=== PATIENT | female | born 1990 | race Two or more races ===

== ENCOUNTER → 2020-07-08 | Day surgery (SDC) | payer BC ==
[2020-07-08] VITALS (13 sets, daily range): BP systolic 115–140; BP diastolic 71–85
[~2020-07-08] VITALS: Ht 172.7 cm; Wt 80.7 kg
[~2020-07-08] MED LIST: Acetaminophen (Non formulary) 100 ML IV ONE; Atropine Sulfate 0.4mg/ml inj IVP PRN; DiphenhydrAMINE 50mg/ml Inj IVP PRN; Glycopyrrolate 0.2mg/ml 1ml Vial ONE; HYDROcodone/Acetamin 10/325 tab ORAL PRN; HYDROcodone/Acetamin 5/325 tab ORAL PRN; HYDROcodone/Acetamin 7.5/325 tab ORAL PRN; HYDROmorphone 1mg/ml Carpuject SUBQ PRN; Hydromorphone 0.5mg/0.5ml inj IVP PRN; Ketorolac 30mg Inj IV PRN; LORazepam Inj 2mg/ml 1ml IV PRN; LR 1000ml 1,000 ML IVLG SCH; Labetalol 5mg/ml 20ml vial IV PRN; Lidocaine 1% MPF 10mg/ml 5ml ONE; Meperidine 25mg/1ml Inj (FOR RIGORS ONLY) IV PRN; Metoclopramide 10mg/2ml Inj IVP PRN; Midazolam 2mg/2ml Inj IVP PRN; NS 1,000 ML IV SCH; Ropivacaine 5mg/ml Vial 30ml INJ ONE; fentaNYL 100 mcg/2 mL IV ONE; fentaNYL 100 mcg/2 mL IV PRN; oxyCODONE HCL/Acetaminophen 5/325mg ORAL PRN
[2020-07-08 06:25] LABS: EOSINOPHILS % (AUTO) 1.5 % (0.0-3.0); HEMATOCRIT 37.5 % (37.0-47.0); HEMOGLOBIN 12.4 G/DL (12.0-16.0); MEAN CORPUSCULAR VOLUME 90 FL (80-99); MONOCYTES % (AUTO) 16.1 % (1.0-10.0); NEUTROPHILS % (AUTO) 48.4 % (45.0-75.0); PLATELET COUNT 206 K/UL (150-450); RED BLOOD COUNT 4.19 M/UL (4.20-5.40); RED CELL DISTRIBUTION WIDTH 11.7 % (11.6-14.8); WHITE BLOOD COUNT 5.3 K/UL (4.8-10.8)
[2020-07-08 06:34] LABS: INR 0.9 (0.9-1.1)
[2020-07-08 06:41] LABS: ANION GAP 13 mmol/L (5-15); BLOOD UREA NITROGEN 11 mg/dL (7-18); CALCIUM 9.2 MG/DL (8.5-10.1); CARBON DIOXIDE 21 MMOL/L (21-32); CHLORIDE 108 MMOL/L (98-107); CREATININE 0.6 MG/DL (0.55-1.30); POTASSIUM 3.8 MMOL/L (3.5-5.1); SODIUM 142 MMOL/L (136-145)
--- NOTE | 2020-07-08 07:07 | Anethesia Preoperative Eval ---
Anesthesia Pre-op PMH/ROS General Date of Evaluation: Jul 08, 2020 Time of Evaluation: 07:21 Anesthesiologist: Emmie ASA Score: ASA 2 Mallampati Score Class I : Soft palate, uvula, fauces, pillars visible Class II: Soft palate, uvula, fauces visible Class III: Soft palate, base of uvula visible Class IV: Only hard plate visible Mallampati Classification: Class II Surgeon: Boaz Diagnosis: Abd Pain Surgical Procedure: Laparoscopic R Ovarian Cystectomy Anesthesia History: none Family History: no anesthesia problems Allergies: Coded Allergies: AMOXICILLIN (Verified Allergy, Unknown, Rash, 07/07/20) Medications: see eMAR Patient NPO?: Yes Past Medical History Neurologic/Psychiatric: Reports: depression/anxiety HEENT: Reports: other - Tinnitus Anesthesia Pre-op Phys. Exam Physician Exam Last Vital Signs Date Time Temp Pulse Resp B/P (MAP) Pulse Ox O2 Delivery O2 Flow Rate FiO2 07/08/20 05:58 Room Air 07/08/20 05:58 97.3 89 18 115/76 96 Constitutional: NAD Neurologic: CN 2-12 intact Cardiovascular: RRR Respiratory: CTA Gastrointestinal: S/NT/ND Airway Exam Mallampati Score: Class II MO: full ROM: full Teeth: missing, intact Anesthesia Pre-op A/P Labs Hematology Test 07/08/20 05:55 White Blood Count 5.3 K/UL (4.8-10.8) Red Blood Count 4.19 M/UL (4.20-5.40) L Hemoglobin 12.4 G/DL (12.0-16.0) Hematocrit 37.5 % (37.0-47.0) Mean Corpuscular Volume 90 FL (80-99) Mean Corpuscular Hemoglobin 29.7 PG (27.0-31.0) Mean Corpuscular Hemoglobin Concent 33.1 G/DL (32.0-36.0) Red Cell Distribution Width 11.7 % (11.6-14.8) Platelet Count 206 K/UL (150-450) Mean Platelet Volume 8.6 FL (6.5-10.1) Neutrophils (%) (Auto) 48.4 % (45.0-75.0) Lymphocytes (%) (Auto) 32.0 % (20.0-45.0) Monocytes (%) (Auto) 16.1 % (1.0-10.0) H Eosinophils (%) (Auto) 1.5 % (0.0-3.0) Basophils (%) (Auto) 2.0 % (0.0-2.0) Coagulation Test 07/08/20 05:55 Prothrombin Time 10.1 SEC (9.30-11.50) Prothromb Time International Ratio 0.9 (0.9-1.1) Activated Partial Thromboplast Time 27 SEC (23-33) Chemistry Test 07/08/20 05:55 Sodium Level 142 MMOL/L (136-145) Potassium Level 3.8 MMOL/L (3.5-5.1) Chloride Level 108 MMOL/L (98-107) H Carbon Dioxide Level 21 MMOL/L (21-32) Anion Gap 13 mmol/L (5-15) Blood Urea Nitrogen 11 mg/dL (7-18) Creatinine 0.6 MG/DL (0.55-1.30) Estimat Glomerular Filtration Rate > 60 mL/min (>60) Glucose Level 94 MG/DL (74-106) Calcium Level 9.2 MG/DL (8.5-10.1) Urine Test Test 07/08/20 05:45 Urine HCG, Qualitative Negative (NEGATIVE) Risk Assessment & Plan Assessment: ASA 2 Plan: GA, SED, GlideScope Status Change Before Surgery: No Pre-Antibiotics Dru Gram Ancef IV Given Within 1 Hr of Incision: Yes Time Given: 07:31 Jaxon Olea MD Jul 08, 2020 07:07
--- NOTE | 2020-07-08 07:08 | Immediate Post-Op Evaluation ---
Immediate Post-Op Evalulation Immediate Post-Op Evalulation Procedure: Laparoscopic R Ovarian Cystectomy Date of Evaluation: Jul 08, 2020 Time of Evaluation: 09:55 IV Fluids: 700 LR Blood Products: 0 Estimated Blood Loss: 25 Urinary Output: 300 Blood Pressure Systolic: 116 Blood Pressure Diastolic: 71 Pulse Rate: 70 Respiratory Rate: 16 O2 Sat by Pulse Oximetry: 100 Temperature (Fahrenheit): 98.2 Pain Score (1-10): 2 Nausea: No Vomiting: No Complications 0 Patient Status: awake, reacts, patent, extubated, none Hydration Status: adequate Dru Gram Ancef IV Given Within 1 Hr of Incision: Yes Time Given: 07:31 Jaxon Olea MD Jul 08, 2020 07:08
--- NOTE | 2020-07-08 07:43 | Pre-Procedure Note/Attestation ---
Pre-Procedure Note/Attestation Complete Prior to Procedure Planned Procedure: right Procedure Narrative: Laparoscopic right ovarian cystectomy, possible right salpingectomy, possible right salpingo-oophorectomy Indications for Procedure Pre-Operative Diagnosis: Right adnexal cyst with internal calcification, right lower quadrant pain Attestation I attest that I discussed the nature of the procedure; its benefits; risks and complications; and alternatives (and the risks and benefits of such alternatives), prior to the procedure, with the patient (or the patient's legal apparel trimmings sales representative). I attest that, if there was a reasonable possibility of needing a blood transfusion, the patient (or the patient's legal apparel trimmings sales representative) was given the [place] Department [employer] standardized written summary, pursuant to the [place] Blood Safety Act ([place] Health and Safety Code # 1645, as amended). I attest that I re-evaluated the patient just prior to the surgery and that there has been no change in the patient's H&P, except as documented below: NONE Debora Sandra M.D. Jul 08, 2020 07:43
--- NOTE | 2020-07-08 07:48 | 48 Hour Post Anesthesia Eval ---
Post Anesthesia Evaluation Procedure: Laparoscopic R Ovarian Cystectomy Date of Evaluation: Jul 08, 2020 Time of Evaluation: 12:01 Blood Pressure Systolic: 117 0: 72 Pulse Rate: 69 Respiratory Rate: 18 Temperature (Fahrenheit): 98.4 O2 Sat by Pulse Oximetry: 100 Airway: patent Nausea: No Vomiting: No Pain Intensity: 2 Hydration Status: adequate Cardiopulmonary Status: Stable Mental Status/LOC: patient returned to baseline Follow-up Care/Observations: 0 Post-Anesthesia Complications: 0 Follow-up care needed: ready to discharge Jaxon Olea MD Jul 08, 2020 07:48
--- NOTE | 2020-07-08 09:34 | Brief Operative Note ---
Immediate Post Operative Note Operative Note Chief Complaint: Right adnexal cyst, right lower quadrant pain Pre-op Diagnosis: Right adnexal cyst with internal calcification, right lower quadrant pain Procedure: Right paratubal cyst removal Post-op Diagnosis: Right paratubal cyst Post-op Diagnosis: same as pre-op Findings: consistent w/pre-op dx studies Surgeon: Debora Sandra MD [employer] Farmworker: Hailee Ríos MD Anesthesiologist: Jaxon Olea MD Anesthesia: general Specimen: yes - Right tubal cyst, pelvic washings Complications: none Condition: stable Fluids: 700cc crystalloid Estimated Blood Loss: minimal Drains: none Implant(s) used?: No Debora Sandra M.D. Jul 08, 2020 09:34
--- NOTE | 2020-07-08 09:50 | Operative Note - PDOC ---
Operative Note Operative Note Date of Operation/Procedure: Jul 08, 2020 Chief Complaint: Right adnexal cyst, right lower quadrant pain Pre-op Diagnosis: Right adnexal cyst with internal calcification, right lower quadrant pain Procedure: Right paratubal cyst removal Post-op Diagnosis: Right paratubal cyst Post-op Diagnosis: same as pre-op Operative Findings: consistent w/pre-op dx studies Surgeon: Debora Sandra MD Energy And Conservation Technician: Hailee Ríos MD Anesthesiologist: Jaxon Olea MD Anesthesia: general Specimen: yes - Right tubal cyst, pelvic washings Complications: none Condition: stable Fluids: 700cc crystalloid Estimated Blood Loss: minimal Drains: none Implant(s) used?: No Indications for Procedure Persistent right adnexal cyst with internal calcification, right lower quadrant pain. Description of Procedure The R/B/A of the procedure were discussed with the patient and informed consent was obtained. The patient was taken to the operating room with IV in place. SCD stockings were placed. The patient was placed in dorsal supine position and general anesthesia was administered without difficulty. The patient was placed in dorsal lithotomy position with arms tucked at her sides in position. The patient was prepped and draped in the usual sterile fashion. A ramos catheter was inserted to drain the urinary bladder. A time out was performed to verify patient and intended procedure. A sterile speculum was inserted and the anterior lip of the cervix was grasped with a single-toothed tenaculum. The patient's IUD strings were visualized at the external os. The acorn manipulator was inserted, stabilized against the tenaculum and the speculum was removed. Attention was turned to the abdomen. Local anesthetic was injected infraumbilically. A #11 scalpel was used to make a 5mm incision. The Veress needle was inserted and the abdomen was insufflated. Initial pressure was 5mmHg. The Veress was removed and the abdomen was entered bluntly under direct visualization with a 5mm Visiport. The abdomen was inspected and no harm due to the procedure done was noted. The patient was placed in Trendelenburg. Two 5mm accessory ports were inserted under direct visualization in the bilateral lower quadrants. The right tube was inspected and a cystic mass was noted and found to be paratubal in nature. The right tube and ovary were otherwise normal in appearance. The left tube and ovary appeared normal. The uterus appeared normal. Pelvic washings were obtained. Using a combination of blunt dissection, hydrodissection, and bipolar cautery, the cyst was removed intact, without any inherent or inadvertent damage to the right fallopian tube or infundibulopelvic ligament. Adequate hemostasis was noted. The left lower quadrant 5mm port was replaced with an 11mm trochar and an Endocatch bag was used to remove the cyst intact. Small rupture was noted prior to placing the cyst in the bag. The cyst was deflated within the bag and removed from the left lower quadrant port site. The surgical site was reinspected and hemostasis was achieved with bipolar electrocautery. Excellent hemostasis was noted. The pelvis was irrigated and the procedure was terminated. The ports were removed under direct visualization and the CO2 gas was allowed to escape. The left lower quadrant fascial defect was reapproximated using 0-Vicryl suture. The skin incisions were closed with 4-0 Monocryl in a subcuticular fashion, covered with steri-strips and gauze/Tegaderm. Attention was turned to the pelvis. The tenaculum and [place] were removed without difficulty. Ramos catheter removed. The patient was awakened from anesthesia without complication and taken to the recovery area in good condition. She will be discharged home once she has met discharge criteria. I was present and scrubbed for the entire procedure. Debora Sandra M.D. Jul 08, 2020 09:50
== END | disposition home or self-care (01) ==
LOC: SUR 05:36
DX: N83.201 Unspecified ovarian cyst, right side (principal); Z97.5 Presence of (intrauterine) contraceptive device; F32.9 Major depressive disorder, single episode, unspecified; F41.9 Anxiety disorder, unspecified; Z88.1 Allergy status to other antibiotic agents
CPT/HCPCS: 36415; 49322; 80048; 81025; 85025; 85610; 85730; 94003; J0131; J0690; J1100; J1170; J1885; J2250; J2405; J2704; J2795; J3010; 94150